=== PATIENT | male | born 2000 | race Hispanic/Latino ===

== ENCOUNTER 2021-09-08 11:36 | Emergency (ER) | payer OTHER, SELFPAY ==
[2021-09-08] MEDS ORDERED: Ibuprofen 200 MG TAB ONE (12:08)
== END 2021-09-08 12:43 | disposition home or self-care (01) ==
LOC: NAV ERS 11:36
DX: S46.911A Strain of unspecified muscle, fascia and tendon at shoulder and upper arm level, right arm, initial encounter (principal); S43.401A Unspecified sprain of right shoulder joint, initial encounter; F17.210 Nicotine dependence, cigarettes, uncomplicated; W01.0XXA Fall on same level from slipping, tripping and stumbling without subsequent striking against object, initial encounter; Y93.01 Activity, walking, marching and hiking

== ENCOUNTER 2021-12-13 00:43 | Emergency (ER) | payer SELFPAY ==
[2021-12-13] MEDS ORDERED: Ibuprofen 200 MG TAB ONE (01:14)
[2021-12-13] MEDS ORDERED: AMOXicillin 250 MG CAP ONE (01:14)
== END 2021-12-13 01:25 | disposition home or self-care (01) ==
LOC: NAV ERS 00:43
DX: H66.92 Otitis media, unspecified, left ear (principal); F17.210 Nicotine dependence, cigarettes, uncomplicated
CPT/HCPCS: 99282